=== PATIENT | female | born 1945 | race Caucasian/White ===

== ENCOUNTER 2016-12-09 11:31 | Emergency (ER) | payer BC ==
[2016-12-09 12:09] LABS: URINE APPEARANCE CLEAR; URINE BILIRUBIN NEGATIVE (NEGATIVE); URINE BLOOD TRACE-I (NEGATIVE); URINE COLOR YELLOW; URINE GLUCOSE (UA) NEGATIVE (NEGATIVE); URINE KETONE NEGATIVE (NEGATIVE); URINE LEUKOCYTE ESTERASE NEGATIVE (NEGATIVE); URINE NITRITE NEGATIVE (NEGATIVE); URINE PROTEIN NEGATIVE (NEGATIVE); URINE UROBILINOGEN 0.2 E.U./dL (0.20 - 1.00)
--- NOTE | 2016-12-09 14:55 | Emergency Department Record ---
History of Present Illness - General Chief complaint: Female Urogenital Problem Stated complaint: UNABLE TO URINATE Time Seen by Provider: 12/09/16 13:52 Mode of Arrival: Ambulatory - History of Present Illness Initial comments: vaginal burning and frequent urination and had apelvix about two weeks ago and she was started on antibiotics and the antibiotics stopped because culture negative and today she called her office and said to go to ED because of severe abdominal pain Onset/Timin -: Month(s) Consistency: Constant Improves with: None Worsens with: Urination Patient : No Associated Symptoms: Loss of appetite - Related Data Sexually active: No Previous Rx's Medication Instructions Recorded Fluconazole [Diflucan] 150 mg PO ONCE #1 tab 12/09/16 Miconazole Nitrate [Monistat 7] 1 applic VG DAILY #7 [id number] 12/09/16 Allergies Allergy/AdvReac Type Severity Reaction Status Date / Time cephalexin monohydrate Allergy Intermediate Unverified 11/16/16 15:55 [From Keflex] iodine Allergy Intermediate Unverified 11/16/16 15:55 Penicillins Allergy Intermediate Unverified 11/16/16 15:55 Sulfa (Sulfonamide Allergy Intermediate Unverified 11/16/16 15:55 Antibiotics) Travel Screening - Travel/Exposure Within Last 30 Days Have you traveled within the last 30 days?: No Review of Systems Reviewed: No additional complaints except as noted below Constitutional: Reports: As per HPI. Denies: Chills, Fever, Malaise, Night sweats, Weakness, Weight change Eyes: Reports: As per HPI. Denies: Eye discharge, Eye pain, Photophobia, Vision change ENT: Reports: As per HPI. Denies: Congestion, Dental pain, Ear pain, Epistaxis , Hearing loss, Throat pain Respiratory: Reports: As per HPI. Denies: Cough, Dyspnea, Hemoptysis, Stridor, Wheezes Cardiovascular: Reports: As per HPI. Denies: Arrhythmia, Chest pain, Dyspnea on exertion, Edema, Murmurs, Orthopnea, Palpitations, Paroxysmal nocturnal dyspnea, Rheumatic Fever, Syncope Endocrine: Reports: As per HPI. Denies: Fatigue, Heat or cold intolerance, Polydipsia, Polyuria Gastrointestinal: Reports: As per HPI. Denies: Abdominal pain, Constipation, Diarrhea, Hematemesis, Hematochezia, Melena, Nausea, Vomiting Genitourinary: Reports: As per HPI. Denies: Abnormal menses, Discharge, Dyspareunia, Dysuria, Frequency, Hematuria, Incontinence, Retention, Urgency Musculoskeletal: Reports: As per HPI. Denies: Arthralgia, Back pain, Gout, Joint swelling, Myalgia, Neck pain Skin: Reports: As per HPI. Denies: Bruising, Change in color, Change in hair/ nails, Lesions, Pruritus, Rash Neurological: Reports: As per HPI. Denies: Abnormal gait, Confusion, Headache, Numbness, Paresthesias, Seizure, Tingling, Tremors, Vertigo, Weakness Psychiatric: Reports: As per HPI. Denies: Anxiety, Auditory hallucinations, Depression, Homicidal thoughts, Suicidal thoughts, Visual hallucinations Hematological/Lymphatic: Reports: As per HPI. Denies: Anemia, Blood Clots, Easy bleeding, Easy bruising, Swollen glands Past Medical History - SOCIAL HISTORY Smoking Status: Current every day smoker Alcohol Use: None Drug Use: None - RESPIRATORY Hx Respiratory Disorders: No - CARDIOVASCULAR Hx Cardio Disorders: No - NEURO Hx Neuro Disorders: No - GI Hx GI Disorders: Yes Hx Reflux: Yes - Hx Genitourinary Disorders: Yes Hx UTI: Yes - ENDOCRINE Hx Endocrine Disorders: Yes Hx Thyroid Disease: Yes (hypo) - MUSCULOSKELETAL Hx Musculoskeletal Disorders: Yes Hx Arthritis: Yes (RA) - PSYCH Hx Psych Problems: No - HEMATOLOGY/ONCOLOGY Hx Hematology/Oncology Disorders: No Family Medical History Any Significant Family History?: No Physical Exam - General General Appearance: Alert, Oriented x3, Cooperative, No acute distress - Head Head exam: Normal inspection - Eye Eye exam: Normal appearance, PERRL Pupils: Normal accommodation - ENT ENT exam: Normal exam, Mucous membranes moist, Normal external ear exam, Normal orophraynx, TM's normal bilaterally Ear exam: Normal external inspection. negative: External canal tenderness Nasal Exam: Normal inspection. negative: Discharge, Sinus tenderness Mouth exam: Normal external inspection, Tongue normal Teeth exam: Normal inspection. negative: Dental caries Throat exam: Normal inspection. negative: Tonsillar erythema, Tonsillar exudate - Neck Neck exam: Normal inspection, Full ROM. negative: Tenderness - Respiratory Respiratory exam: Normal lung sounds bilaterally. negative: Respiratory distress - Cardiovascular Cardiovascular Exam: Regular rate, Normal rhythm, Normal heart sounds - GI/Abdominal GI/Abdominal exam: Soft, Normal bowel sounds. negative: Tenderness - Rectal Rectal exam: Deferred - exam: Abnormal external exam (some erythema of the labia majora), Vaginal discharge (white discharge like yeast), Other (hysterectomy). negative: Adnexal mass (L), Adnexal mass (R), Adnexal tenderness (L), Adnexal tenderness ( R), Cervical discharge, Normal external exam, Vaginal bleeding - Extremities Extremities exam: Normal inspection, Full ROM, Normal capillary refill. negative: Tenderness - Back Back exam: Reports: Normal inspection, Full ROM. Denies: Muscle spasm, Rash noted, Tenderness - Neurological Neurological exam: Alert, Normal gait, Oriented X3, Reflexes normal - Psychiatric Psychiatric exam: Normal affect, Normal mood - Skin Skin exam: Dry, Intact, Normal color, Warm Course Vital Signs 12/09/16 13:04 Temperature 97.5 F L Pulse Rate 66 Respiratory 18 Rate Blood Pressure 135/75 Pulse Ox 95 Medical Decision Making - Data Complexity MDM Data: Labs Ordered and/or Reviewed, X-Ray Ordered and/or Reviewed (CT of abd and pelvis negative) - Lab Data Result diagrams: 12/09/16 15:10 12/09/16 15:10 Lab Results 12/09/16 Range/Units 11:57 Urine Color Yellow Urine Appearance Clear Urine pH 5.5 (5.0-8.0) Ur Specific [place] <= 1.005 (1.002-1.030) Urine Protein Negative (NEGATIVE) Urine Glucose (UA) Negative (NEGATIVE) Urine Ketones Negative (NEGATIVE) Urine Blood Trace-i (NEGATIVE) Urine Nitrite Negative (NEGATIVE) Urine Bilirubin Negative (NEGATIVE) Urine Urobilinogen 0.2 (0.20 - 1.00) E.U./dL Ur Leukocyte Esterase Negative (NEGATIVE) Disposition Clinical Impression: Monial infection of vagina, Dysuria Vaginitis Qualifiers: Chronicity: acute Qualified Code(s): N76.0 - Acute vaginitis Disposition: Home, Self-Care Condition: (1) Good Instructions: Vaginitis (ED) Additional Instructions: monastat vaginal cream at night for 7 days follow up with family in 7 days Prescriptions: Fluconazole [Diflucan] 150 mg PO ONCE #1 tab Miconazole Nitrate [Monistat 7] 1 applic VG DAILY #7 [id number].[email or web address] Forms: Patient Portal Access Time of Disposition: 16:29 Quality - Quality Measures Quality Measures: N/A - Blood Pressure Screening Does Patient Have Any of the Following: No Blood Pressure Classification: Pre-Hypertensive BP Reading Systolic Measurement: 135 Diastolic Measurement: 75 Screening for High Blood Pressure: < Pre-Hypertensive BP, F/U Documented > [ G8950] Pre-Hypertensive Follow-up Interventions: Referral to alternative/primary care provider.
[2016-12-09 15:22] LABS: BASO % 0.4 % (0-6); EOS % 0.7 % (0-6); GRAN % 65.3 % (47-80); HEMATOCRIT 45.7 % (35.0-47.0); HEMOGLOBIN 15.4 gm/dl (11.6-16.0); MEAN CORPUSCULAR HGB CONC 33.7 g/dl (32-36); MEAN PLATELET VOLUME 9.8 fl (7.4-10.4); MONO % 6.6 % (0-9); PLATELET COUNT 265 K/uL (130-400); RED BLOOD COUNT 4.97 M/uL (3.80-5.40); RED CELL DISTRIBUTION WIDTH 13.2 % (11.5-14.5); WHITE BLOOD COUNT W/O DIFF 7.1 K/uL (4.2-12.2)
[2016-12-09 15:43] LABS: BLOOD UREA NITROGEN 10 mg/dL (8-23); CREATININE 0.7 mg/dL (0.5-0.9); EST GLOMERULAR FILTRATION RATE > 60 mL/min; GLUCOSE,RANDOM 98 mg/dL (74-109); LIPASE 26 U/L (13-60)
--- NOTE | 2016-12-12 06:52 | CT SCAN REPORT ---
DATE: 12/09/2016 at 1547. EXAM: ABDOMEN AND PELVIS CT WITHOUT INTRAVENOUS CONTRAST. HISTORY: Acute generalized pelvic pain, worse with urinating. COMPARISON: None. TECHNIQUE: Contiguous axial images from the lung bases to the symphysis pubis were obtained without intravenous contrast. FINDINGS: Linear ducts of pleural scarring in the right lower lobe. Evaluation of the solid abdominal visceral organs is compromised due to lack of intravenous contrast. The liver, spleen, adrenals, and pancreas are normal. The gallbladder is surgically absent. Unilocular cyst in the upper pole of the left measures 18 mm. No renal calculi or hydronephrosis. The visualized loops of small and large bowel demonstrate normal caliber. The appendix is difficult to delineate, although there is no pericecal inflammatory change. A small to moderate amount of fecal material throughout the colon. No free intraperitoneal fluid or adenopathy. Mild to moderate calcification in the abdominal aorta without aneurysm. The uterus is absent. The urinary bladder is decompressed with no adjacent fat stranding. No lytic or blastic osseous lesion. IMPRESSION: 1. NO ACUTE INFLAMMATORY PROCESS OF THE ABDOMEN OR PELVIS. 2. BENIGN BOSNIAK TYPE 1 LEFT RENAL CYST. 3. NO RENAL CALCULI. 4. MILD TO MODERATE AORTIC CALCIFICATION WITHOUT ANEURYSM. JOB NUMBER: [id number] [facility]
== END 2016-12-09 16:48 | disposition home or self-care (01) ==
LOC: ER 11:31
DX: N76.0 Acute vaginitis (principal); B37.3 Candidiasis of vulva and vagina; R30.0 Dysuria; R10.2 Pelvic and perineal pain
CPT/HCPCS: 99284 ×2; 83690; 85025; 80048; 81003; 74176; Q0111; 87210

== ENCOUNTER 2018-03-03 17:10 | Emergency (ER) | payer BC ==
[2018-03-03] MEDS ORDERED: IPRATROPIUM/ALBUTEROL (0.5MG/3MG) NEB INH ONE (17:47)
--- NOTE | 2018-03-03 17:54 | Emergency Department Record ---
History of Present Illness - General Chief Complaint: Cough Stated Complaint: COUGHING Time Seen by Provider: 03/03/18 17:47 Source: Patient Mode of Arrival: Ambulatory Limitations: No limitations - History of Present Illness Initial Comments: 73 yo female presents to ED for evaluation of a non-productive cough and congestion symptoms for the past several days. Patient denies fevers, chills, or sore throat symptoms. Patient does report a history of smoking but denies formal diagnosis of COPD or asthma. Patient denies chest discomfort or pain as well. MD Complaint: Cough Onset/Timin -: Days(s) Severity: Mild Severity scale (1-10): 2 Consistency: Intermittent Worsens With: Other (laying supine) Associated Symptoms: Denies other symptoms Treatments Prior to Arrival: None - Related Data Previous Rx's Medication Instructions Recorded Albuterol Sulfate [Proair Hfa] 1 - 2 puff IH .EVERY 4-6 HOURS PRN 03/03/18 #1 inhaler Prednisone [Prednisone 20Mg] 20 mg PO BID #10 tab 03/03/18 Allergies Allergy/AdvReac Type Severity Reaction Status Date / Time cephalexin monohydrate Allergy Intermediate DIFFICULTY Unverified 03/03/18 17:36 [From Keflex] BREATHING codeine Allergy Intermediate HIVES Verified 03/03/18 17:36 iodine Allergy Intermediate DIFFICULTY Unverified 03/03/18 17:36 BREATHING Penicillins Allergy Intermediate DIFFICULTY Unverified 03/03/18 17:36 BREATHING Sulfa (Sulfonamide Allergy Intermediate RASH Unverified 03/03/18 17:36 Antibiotics) Travel Screening - Travel/Exposure Within Last 30 Days Have you traveled within the last 30 days?: No - Travel/Exposure Within Last Year Have you traveled outside the [place] in the last year?: No - Additonal Travel Details Have you been exposed to anyone with a communicable illness?: No - Travel Symptoms Symptom Screening: Headache, Diarrhea Review of Systems Constitutional: Denies: Chills, Fever, Malaise, Night sweats Eyes: Denies: Eye discharge, Eye pain ENT: Reports: Congestion. Denies: Ear pain, Epistaxis Respiratory: Reports: Cough. Denies: Dyspnea Cardiovascular: Denies: Chest pain, Dyspnea on exertion Endocrine: Denies: Fatigue, Heat or cold intolerance Gastrointestinal: Denies: Abdominal pain, Nausea, Vomiting Genitourinary: Denies: Incontinence, Retention Musculoskeletal: Denies: Arthralgia, Back pain Skin: Denies: Bruising, Change in color Neurological: Denies: Abnormal gait, Confusion, Headache, Tingling, Tremors Psychiatric: Denies: Anxiety Hematological/Lymphatic: Denies: Anemia, Blood Clots Past Medical History - SOCIAL HISTORY Smoking Status: Current every day smoker Alcohol Use: None Drug Use: None - RESPIRATORY Hx Respiratory Disorders: No - CARDIOVASCULAR Hx Cardio Disorders: No - NEURO Hx Neuro Disorders: No - GI Hx GI Disorders: Yes Hx Reflux: Yes - Hx Genitourinary Disorders: Yes Hx UTI: Yes - ENDOCRINE Hx Endocrine Disorders: Yes Hx Thyroid Disease: Yes (hypo) - MUSCULOSKELETAL Hx Musculoskeletal Disorders: Yes Hx Arthritis: Yes (RA) - PSYCH Hx Psych Problems: No - HEMATOLOGY/ONCOLOGY Hx Hematology/Oncology Disorders: No Family Medical History Any Significant Family History?: Yes Hx Cancer: Mother Hx Diabetes: Father Hx Heart Disease: Father Hx Kidney Disease: Mother Hx Stroke: Father Physical Exam - General General Appearance: Alert, Oriented x3, Cooperative, Mild distress Limitations: No limitations - Head Head exam: Atraumatic, Normocephalic, Normal inspection Head exam detail: negative: Abrasion, Contusion, Valenzuela's sign, General tenderness, Hematoma, Laceration - Eye Eye exam: Normal appearance. negative: Conjunctival injection, Periorbital swelling, Periorbital tenderness, Scleral icterus - ENT Ear exam: negative: Auricular hematoma, Auricular trauma Nasal Exam: negative: Active bleeding, Discharge, Dried blood, Foreign body Mouth exam: negative: Drooling, Laceration, Muffled voice, Tongue elevation - Neck Neck exam: Normal inspection. negative: Meningismus, Tenderness - Respiratory Respiratory exam: Decreased breath sounds. negative: Respiratory distress, Rhonchi, Stridor, Wheezes - Cardiovascular Cardiovascular Exam: Regular rate, Normal rhythm, Normal heart sounds - GI/Abdominal GI/Abdominal exam: Soft. negative: Rebound, Rigid, Tenderness - Rectal Rectal exam: Deferred - exam: Deferred - Extremities Extremities exam: Normal inspection. negative: Calf tenderness, Pedal edema, Tenderness - Back Back exam: Denies: CVA tenderness (R), CVA tenderness (L) - Neurological Neurological exam: Alert, Normal gait, Oriented X3 - Psychiatric Psychiatric exam: Normal affect, Normal mood - Skin Skin exam: Normal color. negative: Abrasion Type of lesion: negative: abrasion Course Vital Signs 03/03/18 17:23 Temperature 97.7 F Pulse Rate [ 88 Pulse Ox Probe] Respiratory 16 Rate Blood Pressure 146/72 [Left Arm] Pulse Ox 98 - Reevaluation(s) Reevaluation #1: 03/03/18 CXR: No acute process Hyperinflation c/w COPD Patient was updated on her radiology result, reports improvement following duoneb. Patient appears stable for discharge with treatment for COPD exacerbation. Patient agrees with the plan of care as discussed. Disposition Disposition: Discharge Clinical Impression: Bronchitis Disposition: Home, Self-Care Condition: (2) Stable Instructions: Acute Bronchitis (ED) Additional Instructions: Return to ED if your symptoms worsen or if you have any concerns. Prednisone and Albuterol as directed. Follow-up with a primary care provider in 5-7 days as directed. Prescriptions: Albuterol Sulfate [Proair Hfa] 1 - 2 puff IH .EVERY 4-6 HOURS PRN #1 inhaler PRN Reason: Difficulty In Breathing Prednisone [Prednisone 20Mg] 20 mg PO BID #10 tab Forms: Patient Portal Access Time of Disposition: 19:13 Quality - Quality Measures Quality Measures: N/A - Blood Pressure Screening Does Patient Have Any of the Following: No Blood Pressure Classification: Pre-Hypertensive BP Reading Systolic Measurement: 131 Diastolic Measurement: 74 Screening for High Blood Pressure: < Pre-Hypertensive BP, F/U Documented > [ G8950] Pre-Hypertensive Follow-up Interventions: Referral to alternative/primary care provider.
[2018-03-03] MEDS ORDERED: PREDNISONE 20 MG TAB PO ONE (19:10)
--- NOTE | 2018-03-04 21:51 | RADIOLOGY REPORT ---
EXAM: CHEST 2 VIEWS HISTORY: DIFFICULTY IN BREATHING. TECHNIQUE: Frontal and lateral views of chest were performed. FINDINGS: Heart size is normal. Lungs are clear. Minimal biapical pleural thickening. The osseous structures are normal. IMPRESSION: HYPERINFLATED LUNGS. MINIMAL BIAPICAL PLEURAL THICKENING. NO ACUTE PROCESS. JOB NUMBER: [id number] MTDD
== END 2018-03-03 19:21 | disposition home or self-care (01) ==
LOC: ER 17:10
DX: J44.1 Chronic obstructive pulmonary disease with (acute) exacerbation (principal); J20.9 Acute bronchitis, unspecified; J44.0 Chronic obstructive pulmonary disease with (acute) lower respiratory infection; R06.00 Dyspnea, unspecified; F17.210 Nicotine dependence, cigarettes, uncomplicated
CPT/HCPCS: 99283; 99284; 71046; 94640; J7512